=== PATIENT | male | born 1975 | race Caucasian/White ===

== ENCOUNTER 2021-06-06 11:41 | Emergency (ER) | payer SELFPAY ==
[2021-06-06 11:51] VITALS: BP 131/85; PULSE 58; TEMP 98.7; BMI 23.0
== END 2021-06-06 12:39 | disposition home or self-care (01) ==
LOC: FER 11:41
DX: U07.1 COVID-19 (principal)
CPT/HCPCS: 99283-25; C9803; U0003; U0005